=== PATIENT | male | born 1935 | race Caucasian/White ===

== ENCOUNTER 2017-05-11 11:00 | Outpatient (CLI) | payer MEDICARE ==
[~2017-05-11] VITALS: Ht 182.9 cm; Wt 79.5 kg
--- NOTE | ~2017-05-11 | HEMODYNAMI ---
PATIENT:LOAN REYNOLDS MEDICAL RECORD: [id number] : 35 LOCATION:D.CAT ADMISSION DATE: 05/11/17 Generatedon:05/11/201714:26 Patient name: LOAN REYNOLDS Patient #: [id number] SSN: : 1935 Date of study: 05/11/2017 Page: Of Hemodynamic Procedure Report Patient Data Patient Demographics Procedure consent was obtained First Name: LOAN Gender: Male Last Name: GAIL : 1935 [facility] Initial: YULISSA Age: 81 year(s) Patient #: [id number] Race: Additional ID: [id number] Contact details Address: [facility] State: [place] City: [place] Zip code: [address] Past Medical History Allergies: No known allergies Admission Admission Data Admission Date: 05/11/2017 Admission Time: 11:00 Procedure Procedure Types Cath Procedure Diagnostic Procedure PPM/ICD Permanent Pacer Generator Exg. Miscellaneous Procedures Moderate Sedation up to 15 minutes Procedure Description Procedure Date Procedure Date: 05/11/2017 Procedure Start Time: 14:06 Procedure End Time: 14:23 Procedure Staff Name Function Mannie Dunn MD Performing Physician Camila Park RT Monitor Margarita Solomon RT Scrub Gladys Skinner RN Nurse Eliot Cruz MD Performing Physician Procedure Data Cath Procedure Fluoroscopy Diagnostic fluoroscopy Total fluoroscopy Time: 0 time: 0 min min Estimated blood loss: 10 ml Procedure Medications Medication Administration Route Dosage Ancef (1Gm/50ml NS) I.V.P.B 1 g Lidocaine 1% with added to field 20 ml Epi Bupivacaine 0.5% S.Q. 10 ml Ancef Irrigation Topical 1 g (1gm/500ml NS) Versed I.V. 1 mg Fentanyl I.V. 50 mcg Versed I.V. 1 mg Fentanyl I.V. 50 mcg Hemodynamics Rest Heart Rate: 60 (bpm) Snapshots Pre Cath Intra NCS Post Cath Vital Signs Time Heart Resp SPO2 NIBP (mmHg) Rhythm Pain Sedation Rate (ipm) (%) Status Level (bpm) 13:55:54 59 21 97 151/73(125) Paced 0 (11) 10(A) , No pain 14:00:08 60 29 98 142/81(120) Paced 0 (11) 10(A) , No pain 14:04:20 60 15 97 137/76(119) Paced 0 (11) 10(A) , No pain 14:08:28 60 16 96 146/83(119) Paced 0 (11) 10(A) , No pain 14:12:40 60 16 97 137/84(112) Paced 0 (11) 10(A) , No pain 14:16:49 59 22 97 136/78(110) Paced 0 (11) 10(A) , No pain 14:20:59 53 18 96 138/79(116) Paced 0 (11) 10(A) , No pain Medications Time Medication Route Dose Verified Delivered Reason Notes Effectiv eness by by 13:49:27 Ancef I.V.P.B 1 g Mannie Buffie used for (1Gm/50ml BarcelonetaSamuel Skinner transfer table operator helper NS) 13:56:18 Lidocaine added 20 ml Mannie Mannie for local 1% with Epi to [facility] anesthetic field MD CONNELLY 13:56:36 Bupivacaine S.Q. 10 ml Mannie Mannie [facility] local [facility] 13:56:49 Ancef Topical 1 g Mannie Mannie used [facility] procedure (1gm/500ml MD CONNELLY NS) 14:06:53 Versed I.V. 1 mg Mannie Buffie for MonaSamuel Skinner RN sedation 14:06:59 Fentanyl I.V. 50 Mannie Buffie for mcg BarcelonetaSamuel Skinner RN sedation 14:11:43 Versed I.V. 1 mg Mannie Buffie for MonaSamuel Skinner RN sedation 14:11:47 Fentanyl I.V. 50 Mannie Buffie for mcg MonaSamuel Skinner RN sedation Procedure Log Time Note 13:30:29 Camila Park RT(R) sent for patient. Start room use. 13:43:04 Informed consent obtained and on chart 13:43:09 Diagnostic Cath Status : Elective 13:45:03 Time tracking: Regular hours 13:45:08 Plan of Care:Hemodynamics will remain stable., Cardiac rhythm will remain stable., Comfort level will be maintained., Respiratory function will remain adequate., Patient/ family verbilizes understanding of procedure., Procedure tolerated without complication., Recovers from procedure without complications.. 13:45:12 Patient received from Pre/Post Procedure Room to CCL 2 Alert and oriented. Tansferred to table in Supine position. 13:45:14 Warm blankets applied, and michel hugger turned on for patient comfort. 13:45:14 Correct patient and procedure confirmed by team. 13:45:15 ECG and BP/O2 sat monitors applied to patient. 13:49:27 Ancef (1Gm/50ml NS) 1 g I.V.P.B was administered by Gladys Skinner RN; used for procedure; 13:54:43 Vital chart was started 13:54:44 Baseline sample Acquired. 13:54:49 Full Disclosure recording started 13:55:03 H&P Date Dictated: 04/28/2017 Within 30 days and on chart., H&P Addendum completed by physician on day of procedure. (MUST COMPLETE FOR ALL OUTPATIENTS). 13:55:04 Pre-procedure instructions explained to patient. 13:55:06 Family in waiting room. 13:55:08 Patient NPO since Midnight. 13:55:15 Patient allergic to No known allergies 13:55:19 Is the patient allergic to Iodine/contrast media? No. 13:55:21 Is patient on blood thinner?No 13:55:23 Patient diabetic? No. 13:55:28 Snore? Yes 13:55:29 Sleep apnea? No 13:55:34 Dentures? No ? 13:55:38 Patient pain scale 0/10 ?. 13:55:44 IV patent on arrival in right forearm with 0.9% NaCl at O. 13:56:18 Lidocaine 1% with Epi 20 ml added to field was administered by Mannie Dunn MD; for local anesthetic; 13:56:36 Bupivacaine 0.5% 10 ml S.Q. was administered by Mannie Dunn MD; for local anesthetic; 13:56:49 Ancef Irrigation (1gm/500ml NS) 1 g Topical was administered by Mannie Dunn MD; used for procedure; 13:57:39 Lab results completed and on chart. 13:57:50 Left chest area was prepped with dura-prep and draped in sterile fashion 13:57:51 Alarms reviewed by RRaymundo N. 13:57:52 Sharps counted by scrub and verified by R.N. 13:57:53 Physician paged 14:05:20 Physician arrived 14:05:21 --------ALL STOP TIME OUT------ 14::22 Final Timeout: patient, procedure, and site verified with staff and physician. All members of the team are in agreement. 14:05:26 Left chest site verified by team. 14:05:31 Physical assessment completed. ASA score P 2 - A patient with mild systemic disease as per Mannie Dunn MD. 14:05:35 Sedation plan: IV Moderate Sedation Medication:Versed, Fentanyl 14:06:41 Use device set Pacemaker Set 14:06:43 Procedure started. 14:06:53 Versed 1 mg I.V. was administered by Gladys Skinner RN; for sedation; 14:06:59 Fentanyl 50 mcg I.V. was administered by Gladys Skinner RN; for sedation; 14:07:17 Medtronic Advisa MRI PPM Dual Generator [id number] opened to sterile field. 14:08:01 Medtronic sales representative printing JEY present for procedure. 14:08:14 Grounding pad site Left thigh. 14:09:21 Incision made to left subclavicular area. 14:09:21 Generator pocket made/opened. 14:10:26 PPM Dual was removed.. 14:10:30 PPM Dual was inserted subcutaneously to left chest. 14:11:22 Device pocket was irrigated with Ancef. 14:11:43 Versed 1 mg I.V. was administered by Gladys Skinner RN; for sedation; 14:11:47 Fentanyl 50 mcg I.V. was administered by Gladys Skinner RN; for sedation; 14:11:58 Subcutaneous closure was completed with 3-0 vicryl. 14:12:27 Cautery Tip Photograph Editor opened to sterile field. 14:12:30 Cautery Pushbutton Pencil opened to sterile field. 14:18:25 Skin closure was completed with 5-0 monocryl. 14:20:13 Parameters-- Generator: Mode: AAIR=DDDR. Lower Rate: 60bpm. Upper Rate: 130bpm. 14:21:01 Parameters--Ventricular P/R Wave: 11mV. Current: .5mA; Threshold: .4V; Impedence: 522OHMS. 14:21:18 Parameters--Atrial P/R Wave: 5.6mV. Current: .5mA; Threshold: .4V; Impedence: 518OHMS. 14:21:30 Lt Chest incision was dressed with Mepilex dressing. 14:21:36 Procedure ended.(Physican Out) 14:21:48 Fluoroscopy time 00.00 minutes. 14:21:52 Sharps counted by scrub and verified by R.N. 14:21:58 Insertion/operative site no bleeding no hematoma. 14:22:20 Post procedure rhythm: paced 14:22:22 Estimated blood loss: 10 ml 14:22:24 Post procedure instruction explained to patient.Patient verbalizes understanding. 14:22:42 Procedure type changed to Cath procedure, Diagnostic procedure, PPM/ICD, Permanent Pacer Generator Exg., Miscellaneous Procedures, Moderate Sedation up to 15 minutes 14:22:43 Procedure and supply charges have been captured, reviewed, submitted and are correct. 14:23:10 Vital chart was stopped 14:23:12 See physician's report for complete and final results. 14:23:14 Report given to Pre/Post Procedure Room. 14:23:16 Procedure ended. 14:23:16 Full Disclosure recording stopped 14:23:23 End room use (Document Last) Device Usage Item Name Manufacture Quantity Catalog Hospital Part Current Minimal Lot # / Number Charge Number Stock Stock Serial# Code Medtronic Medtronic 1 [id number] Advisa MRI PVY [id number] PPM Dual EXP . Generator 09/26 [id number] Cautery Microtek 1 [id number] 5 [employer] Photograph Editor Cautery Microtek 1 [id number] 5 [employer] Pencil Signature Audit [place] Stage Time Signature Unsigned Intra-Procedure 05/11/2017 Camila Park 2:26:17 PM RT(R) Signatures Monitor : Camila Park Signature : RT Date : Time : [address] [address] [address] [address]
[2017-05-11] MEDS ORDERED: VITAMIN D31000 UNI2 PO (11:19)
[2017-05-11] MEDS ORDERED: PLAQUENIL200 MG PO (11:19)
[2017-05-11 11:26] VITALS: BP 154/80; Ht 182.9 cm; Wt 79.5 kg
[2017-05-11 11:44] LABS: HEMOGLOBIN 14.3 g/dL (13.5-17.5); MCHC 32.5 g/dL (31.0-37.0); MCV 98.4 fL (80.0-100.0); MEAN PLATELET VOLUME 11.4 fL (7.4-10.4); RBC 4.47 10x6/uL (4.20-6.10); RDW 13.3 % (11.5-14.5); WBC 6.4 10x3/uL (4.8-10.8)
[2017-05-11 11:54] LABS: CALC OSMOLALITY 283 mosm/kg (275-300); CARBON DIOXIDE 25.5 mmol/L (21.0-32.0); CHLORIDE - SERUM 106 mmol/L (98-107); CREATININE - SERUM 0.9 mg/dL (0.6-1.3); GLUCOSE 83 mg/dL (74-106); POTASSIUM - SERUM 3.7 mmol/L (3.5-5.1); SODIUM 142 mmol/L (136-145); UREA NITROGEN 17 mg/dL (7-18); eGFR NON AFRICAN AMERICAN 86 mL/min (90-120)
[2017-05-11 11:57] LABS: APTT 27.7 SECONDS (22.8-39.4); INR 0.88 (0.85-1.17); PROTIME 11.8 SECONDS (11.6-15.0)
[2017-05-11] MEDS ORDERED: HYDROCODON-ACE1 EAC7 PO (14:22)
--- NOTE | 2017-05-11 14:35 | NUR ---
1435 RECEIVED PT FROM FOOTBALL COACH. PT IS ALERT, DENIES ANY C/O CHEST PAIN OR NAUSEA. PACED RHYTHM, RATE IS 60. DRESING TO LEFT UPPER CHEST IS CDI, NO BLEEDING OR HEMATOMA NOTED. CALL LIGHT IN REACH, PT DENIES NEEDS AT THIS TIME.
--- NOTE | 2017-05-11 14:51 | OP ---
PATIENT NAME: LOAN REYNOLDS MEDICAL RECORD: [id number] :35 LOCATION:D.CAT ADMISSION DATE: SURGEON: NIYA PORTER MD DATE OF OPERATION: 05/11/2017 PREOPERATIVE DIAGNOSES: 1. Sick sinus syndrome. 2. End of life generator. 3. Atrial fibrillation. POSTOPERATIVE DIAGNOSES: 1. Sick sinus syndrome. 2. End of life generator. 3. Atrial fibrillation. PROCEDURE: Left subclavian vein dual lead pacemaker generator exchange. SURGEON: Niya Porter MD REPORT OF PROCEDURE: The patient's left chest was prepped and draped in sterile fashion. A 25 mL of 1% lidocaine with epinephrine was infused into the surrounding tissues. A skin incision was made overlying the pacemaker and the pacemaker was dissected from the subcutaneous pouch. The pacemaker was then disconnected from the indwelling leads. Leads have been checked preoperatively and noted to be working appropriately. The new pacemaker generator was affixed to the leads and placed back into the subcutaneous pouch. This was sutured into place with 0 Ti-Cron. We then irrigated out the pouch with antibiotic solution. The subcutaneous tissues were reapproximated with interrupted 3-0 Vicryls and the skin was closed with running subcutaneous 5-0 Monocryl. COMPLICATIONS: None. CONDITION: Stable. ANESTHESIA: Local MAC. BLOOD LOSS: Minimal. TRANSINT:[id number] Voice Confirmation ID: [id number] DOCUMENT ID: [id number] NIYA PORTER MD at 1451 CC: FIORELLA MCLEOD MD [id number] DICTATION DATE: 05/11/17 1421 BUSINESS OFFICE ASSOCIATE: 05/11/17 1434 [facility] [address] [id number]
--- NOTE | 2017-05-11 15:04 | NUR ---
1500 SANDWICH AND PO FLUIDS HAVE BEEN SERVED AND PT АНДРЕЙ WITH NO C/O NAUSEA. DRESSING REMAINS CDI. AT BEDSIDE, CALL LIGHT IN REACH.
--- NOTE | 2017-05-11 15:15 | NUR ---
1515 PT HAS АНДРЕЙ SANWICH AND PO FLUIDS WITH NO C/O. DRESSING CDI, VSS.
--- NOTE | 2017-05-11 15:38 | NUR ---
PT DENIES ANY C/O. DRESSING REMAINS CDI. IV DC'D WITH CATH INTACT AND PT IS DRESSING FOR DC TO HOME. AT BEDSIDE.
--- NOTE | 2017-05-11 15:56 | NUR ---
DC INSTRUCTIONS HAVE BEEN REVIEWED WITH PT AND WHO VERBALIZE UNDERSTANDING. PT ESCORTED TO PRIVATE AUTO VIA WC BY NURSE WITH SON DRIVING HIM HOME. DRESSING REMAINS CDI.
== END 2017-05-11 15:55 | disposition home or self-care (01) ==
LOC: D.CATH 11:00
PROVIDERS: Internal Medicine Interventional Cardiology
DX: Z45.010 Encounter for checking and testing of cardiac pacemaker pulse generator [battery] (principal); I49.5 Sick sinus syndrome; I48.91 Unspecified atrial fibrillation; Z01.812 Encounter for preprocedural laboratory examination

== ENCOUNTER → 2018-01-13 10:44 | Outpatient (CLI) | payer MEDICARE ==
[2017-05-11 11:26] VITALS: BMI 23.8
[~2018-01-13 10:44] MED LIST: HYDROCODON-ACE1 EAC7 PO; PLAQUENIL200 MG PO; VITAMIN D31000 UNI2 PO
== END | disposition home or self-care (01) ==
LOC: D.LAB 10:44
DX: R97.20 Elevated prostate specific antigen [PSA] (principal); Z12.5 Encounter for screening for malignant neoplasm of prostate

== ENCOUNTER 2018-12-01 06:56 | Day surgery (SDC) | payer MEDICARE ==
[~2018-12-01 06:56] MED LIST changes: +DONEPEZIL HCL10 MG PO; +FOLIC ACID1 MG PO; +SYNTHROID50 MCG PO; +VOLTAREN75 MG PO
[2018-12-01 07:35] LABS: BASOPHILS 0.4 % (0-2); EOSINOPHILS 1.2 % (0-7); HEMATOCRIT 39.6 % (42.0-54.0); HEMOGLOBIN 13.1 g/dL (13.5-17.5); LYMPHOCYTES 26.6 % (15-50); MCH 32.7 pg (26.0-34.0); MCHC 33.1 g/dL (31.0-37.0); MCV 98.8 fL (80.0-100.0); MEAN PLATELET VOLUME 10.9 fL (7.4-10.4); MONOCYTES 9.5 % (2-11); NEUTROPHILS 62.3 % (40-80); PLATELET COUNT 185 10x3/uL (130-400); RBC 4.01 10x6/uL (4.20-6.10); RDW 13.9 % (11.5-14.5); WBC 5.2 10x3/uL (4.8-10.8)
[2018-12-01 07:39] LABS: CALC OSMOLALITY 287 mosm/kg (275-300); CALCIUM 8.8 mg/dL (8.5-10.1); CARBON DIOXIDE 26.3 mmol/L (21.0-32.0); CHLORIDE - SERUM 108 mmol/L (98-107); CREATININE - SERUM 0.9 mg/dL (0.6-1.3); GLUCOSE 101 mg/dL (74-106); POTASSIUM - SERUM 4.5 mmol/L (3.5-5.1); SODIUM 143 mmol/L (136-145); UREA NITROGEN 22 mg/dL (7-18); eGFR NON AFRICAN AMERICAN 85 mL/min (90-120)
[2018-12-01 08:28] VITALS: BP 132/77; BMI 26.2
--- NOTE | 2018-12-01 10:15 | NUR ---
REC'D FROM SURGERY. FAMILY AT BEDSIDE. ICE WATER AND FL TRAY SERVED TO PATIENT.
--- NOTE | 2018-12-01 10:26 | NUR ---
DR MOTA SPOKE WITH PATIENT AND FAMILY.
--- NOTE | 2018-12-01 10:45 | NUR ---
TOLERATED FL DIET. ASSISTED TO BATHROOM.
--- NOTE | 2018-12-01 11:15 | NUR ---
VOIDED WITHOUT DIFFICULTY. IV DC'D WITH CATHETER INTACT. WRITTEN AND VERBAL DC INST. GIVEN TO PATIENT. VERBALIZED UNDERSTANDING.
--- NOTE | 2018-12-01 11:18 | NUR ---
DC'D HOME WITH FAMILY VIA PRIVATE VEHICLE. STABLE AT TIME
--- NOTE | 2018-12-01 14:37 | OP ---
PATIENT NAME: LOAN REYNOLDS MEDICAL RECORD: [id number] :35 LOCATION:D.OPS ADMISSION DATE: SURGEON: RAPHAEL MOTA MD DATE OF OPERATION: 12/01/2018 SURGEON: Raphael Mota MD ANESTHESIA: TIVA by RENETTA Perea CRNA. DIAGNOSIS: Elevated PSA of 38. PROCEDURE: Transrectal ultrasound and prostate biopsy. FINDINGS: 64 gram prostate with hypoechoic areas in the mid prostate, right greater than left. Irregular prostate contour. SPECIMEN: Prostate biopsy cores. BLOOD LOSS: Minimal. CLINICAL HISTORY: This is an 83-year-old male, who has an elevated PSA of 38. It has been rising since 2014 when it was 13.7. He had a benign prostate biopsy and TURP by Dr. Whitehead in 2016. I had sent him to [facility] for an MRI ultrasound fusion biopsy, but this was contraindicated by the presence of his pacemaker. He therefore comes for a regular transrectal ultrasound and prostate biopsy today. He is not allergic to any medications. He was given Ancef multimedia instructional designer to the OR. DESCRIPTION OF PROCEDURE: The patient was given IV sedation. He was then placed into lithotomy position. The transrectal ultrasound probe was introduced. The prostate contour was irregular from his previous TURP. Prostate size measurement was estimated at 64 grams. There are some hypoechoic areas internally especially in the mid prostate. The right side has more of a hypoechoic area than the left side in the mid prostate. Sextant biopsies were obtained with at least 3 cores from each sextant. Once all the specimens were obtained, then the procedure was terminated. I will see the patient in followup next week to review the pathology results with him. TRANSINT:[id number] Voice Confirmation ID: [id number] DOCUMENT ID: [id number] RAPHAEL MOTA MD at 1437 CC: [id number] DICTATION DATE: 12/01/18 1019 DIRECTOR WORK: 12/01/18 1433 [facility] 12/01/18 [address] [id number]
== END 2018-12-01 11:18 | disposition home or self-care (01) ==
LOC: D.OPS 06:56 → D.PAN 08:00 → D.OPS 09:00
PROVIDERS: Anesthesiology; ATTEND Urology
DX: C61 Malignant neoplasm of prostate (principal); Z01.812 Encounter for preprocedural laboratory examination